=== PATIENT | male | born 1985 | race Caucasian/White ===

== ENCOUNTER 2020-02-08 09:58 | Emergency (ER) | payer MEDICAID ==
[~2020-02-08] VITALS: Ht 180.3 cm; Wt 81.6 kg
[2020-02-08 10:07] VITALS: BP 137/69
--- NOTE | 2020-02-08 10:12 | NUR ---
WAIT AT LOBBY. HANDED ON URINE CUP.
--- NOTE | 2020-02-08 10:39 | NUR ---
PT AMBULATED TO CHAIR A.
--- NOTE | 2020-02-08 10:47 | NUR ---
PT PRESENTS TO ED WITH COMPLAINTS OF LEFT FLANK X2 WEEKS. PT DENIES ANY INJURY OR TRAUMA. PT STATES THE PAIN CAME ON SUDDENLY, INTERMITTENT, 02/25. PT DENIES ANY FEVER OR CHILLS. DENIES ANY S/S OF UTI.
[2020-02-08] MEDS ORDERED: ACETAMINOPHEN EXTRA STRENGTH 500 MG TAB PO ONE (12:05)
[2020-02-08] MEDS ORDERED: IBUPROFEN 600 MG TAB PO ONE (12:05)
--- NOTE | 2020-02-08 12:15 | NUR ---
PT TAKEN TO RAD VIA WHEELCHAIR
[2020-02-08 13:00] VITALS: BP 137/69
--- NOTE | 2020-02-08 13:00 | NUR ---
Patient discharged with v/s stable. Written and verbal after care instructions given and explained. Patient alert, oriented and verbalized understanding of instructions. Ambulatory with steady gait. All questions addressed prior to discharge. ID band removed. Patient advised to follow up with PMD. Rx of Ibuprofen and Tylenol ES given. Patient educated on indication of medication including possible reaction and side effects. Opportunity to ask questions provided and answered.
== END 2020-02-08 13:00 | disposition home or self-care (01) ==
LOC: MED 09:58
DX: M54.89 Other dorsalgia (principal)
CPT/HCPCS: 71046; 99283

== ENCOUNTER 2021-02-19 15:55 | Emergency (ER) | payer SELFPAY ==
[~2021-02-19] VITALS: Ht 180.3 cm; Wt 83.5 kg
[2021-02-19 17:01] VITALS: BP 151/71
[2021-02-19] MEDS ORDERED: KETOROLAC 30 MG/ML VIAL IM ONE (17:50)
[2021-02-19] MEDS ORDERED: HYDROcodone/APAP 5/325 MG 1 TAB TAB PO ONE (17:50)
[2021-02-19] MEDS ORDERED: LID5T TP (18:39)
[2021-02-19] MEDS ORDERED: PRED20TA5 PO (18:39)
[2021-02-19] MEDS ORDERED: IBUP-2213 PO (18:39)
[2021-02-19] MEDS ORDERED: CYCL-711 PO (18:39)
--- NOTE | 2021-02-19 19:10 | NUR ---
Patient discharged with v/s stable. Written and verbal after care instructions given and explained. Patient alert, oriented and verbalized understanding of instructions. Ambulatory with steady gait. All questions addressed prior to discharge. ID band removed. Patient advised to follow up with PMD. Rx of flexeril, motrin, lidoderm, prednisone given. Patient educated on indication of medication including possible reaction and side effects. Opportunity to ask questions provided and answered.
== END 2021-02-19 19:10 | disposition home or self-care (01) ==
LOC: MED 15:55
DX: S39.012A Strain of muscle, fascia and tendon of lower back, initial encounter (principal); R03.0 Elevated blood-pressure reading, without diagnosis of hypertension; W18.39XA Other fall on same level, initial encounter; Y93.89 Activity, other specified; Y92.89 Other specified places as the place of occurrence of the external cause; Y99.8 Other external cause status
CPT/HCPCS: 72100; 81002; 96372; 99283; J1885

== ENCOUNTER 2023-11-16 21:40 | Emergency (ER) | payer SELFPAY ==
[~2023-11-16] VITALS: Ht 177.8 cm; Wt 103.4 kg
[~2023-11-16 21:40] MED LIST: CYCL-711 PO; IBUP-2213 PO; LID5T TP; PRED20TA5 PO
[2023-11-16 21:53] VITALS: BP 163/86; PULSE 69; RESP 18; TEMP 97.8; O2SAT 99
[2023-11-16 23:50] LABS: BASOPHILS % (AUTO) 0.4 % (0.0-2.0); EOSINOPHILS # (AUTO) 0.3 K/uL (0-0.4); EOSINOPHILS % (AUTO) 4.1 % (0.0-4.0); HEMATOCRIT 39.4 % (36-52); HEMOGLOBIN 14.3 g/dL (12.0-18.0); LYMPHOCYTES # (AUTO) 2.3 K/uL (2.0-11.5); LYMPHOCYTES % (AUTO) 37.8 % (20.5-51.1); MEAN CORPUSCULAR HEMOGLOBIN 31 pg (27-31); MEAN CORPUSCULAR HGB CONC 36 g/dL (33-37); MEAN CORPUSCULAR VOLUME 84.4 fL (80-94); MONOCYTES # (AUTO) 0.5 K/uL (0.8-1.0); MONOCYTES % (AUTO) 8.7 % (1.7-9.3); PLATELET COUNT (AUTO) 158 K/uL (140-450); RED BLOOD CELL COUNT(AUTO) 4.66 MIL/uL (4.20-6.10); RED CELL DISTRIBUTION WIDTH 12.7 % (11.6-13.7); WHITE BLOOD COUNT (AUTO) 6.1 K/uL (4.8-10.8)
[2023-11-16] MEDS: LORazepam 1 MG TAB PO ONE (23:50)
[2023-11-17 00:01] LABS: CALCIUM 8.5 mg/dL (8.5-10.1); CARBON DIOXIDE 23.9 mmol/L (21-32); CREATININE 0.9 mg/dL (0.6-1.3)
[2023-11-17 00:05] LABS: POTASSIUM 2.9 mmol/L (3.5-5.1)
[2023-11-17] MEDS: POTASSIUM CHLORIDE 10 MEQ TABER PO ONE (00:39)
[2023-11-17 01:47] VITALS: O2SAT 100
[2023-11-17] MEDS: KETOROLAC 30 MG/ML VIAL IM ONE (02:37)
[2023-11-17] MEDS ORDERED: NAPR-337 PO (03:35)
[2023-11-17] MEDS ORDERED: POTA10TA70 PO (03:35)
[2023-11-17 03:45] VITALS: BP 129/82; PULSE 67; RESP 18; O2SAT 95
== END 2023-11-17 03:45 | disposition home or self-care (01) ==
LOC: MED 21:40
DX: R07.9 Chest pain, unspecified (principal); E87.6 Hypokalemia; Z79.899 Other long term (current) drug therapy
CPT/HCPCS: 36415; 71045; 80048; 84484; 85025; 93005; 96372; 99285; J1885; Q0092